=== PATIENT | female | born 1970 | race Caucasian/White ===

== ENCOUNTER 2024-05-26 15:47 | Emergency (ER) | payer SELFPAY ==
[2024-05-26] MEDS ORDERED: Ketorolac Tromethamine 30 MG (1 mL) VIAL ONE (17:19)
[2024-05-26 17:33] LABS: #Basophils 0.02 10x3/uL (0.0-0.2); #Monocytes 1.19 10x3/uL (0.0-1.1); #Neutrophils 4.81 10x3/uL (1.5-8.4); %Basophils 0.2 % (0.0-2.0); %Lymphocytes 26.9 % (18.0-47.0); %Monocytes 14.4 % (0.0-10.0); %Neutrophils 58.3 % (40.0-75.0); Hematocrit 39.7 % (34.9-44.5); Mean Corpuscular HGB CONC 35.3 g/dL (32.0-36.0); Mean Corpuscular Hemoglobin 32.2 pg (27.0-33.0); Mean Corpuscular Volume 91.3 fL (81.6-98.3); Mean Platelet Volume 8.9 fL (7.4-10.4); Platelet Count 156 10x3/uL (150-450); RBC Distribution Width 12.6 % (11.5-14.5); Red Blood Cell (RBC) Count 4.35 10x6/uL (3.90-5.03); White Blood Cell (WBC) Count 8.3 10x3/uL (3.5-10.5)
[2024-05-26 17:43] LABS: ALT (SGPT) 229 U/L (8-55); AST (SGOT) 221 U/L (5-34); Albumin 3.5 g/dL (3.5-5.0); Alkaline Phosphatase 83 U/L (40-110); Anion Gap 12 mmol/L (10-20); BUN (Urea Nitrogen) 17 mg/dL (9.8-20.1); Bilirubin, Total 0.7 mg/dL (0.2-1.2); Calc. Creatinine Clearance 0 mL/min (70-130); Carbon Dioxide 24 mmol/L (22-29); Chloride 105 mmol/L (98-107); Estimated GFR 103; Globulin 4.1 g/dL (2.4-3.5); Glucose 95 mg/dL (70-105); Potassium 3.9 mmol/L (3.5-5.1); Protein, Total 7.6 g/dL (6.0-8.3); Sodium 137 mmol/L (136-145)
[2024-05-26 17:49] LABS: Troponin I Less than 0.010 ng/mL (< 0.028)
[2024-05-26 18:24] LABS: MONO NEGATIVE CONTROL ZONE White (Negative) (White); MONO POSITIVE CONTROL Pink Line (Positive) (PINK/RED); Mononucleosis NEGATIVE (NEGATIVE)
== END 2024-05-26 19:54 | disposition home or self-care (01) ==
LOC: CSHERS 15:47
DX: R53.81 Other malaise (principal); R79.89 Other specified abnormal findings of blood chemistry
CPT/HCPCS: 36415; 80053; 84443; 84484; 85025; 86308; 93005; 96372; 99285; J1885

== ENCOUNTER 2024-06-10 18:18 | Emergency (ER) | payer BC ==
[2024-06-10] MEDS ORDERED: Ketorolac Tromethamine 30 MG (1 mL) VIAL ONE (19:54)
== END 2024-06-10 20:27 | disposition home or self-care (01) ==
LOC: CSHERS 18:18
DX: S80.01XA Contusion of right knee, initial encounter (principal); W10.9XXA Fall (on) (from) unspecified stairs and steps, initial encounter
CPT/HCPCS: 96372; 99283; J1885